=== PATIENT | female | born 1980 | race Caucasian/White ===

== ENCOUNTER 2021-07-04 00:03 | Day surgery (SDC) | payer OTHER, SELFPAY ==
[2021-06-24 15:24] VITALS: BMI 23.8
[2021-07-04 08:34] VITALS: BP 135/84; PULSE 89; RESP 18; TEMP 36.8; O2SAT 99
[2021-07-04] MEDS: LACTATED RINGERS 1,000 ML 150 ML IV CONT (08:51)
--- NOTE | 2021-07-04 08:59 | P.PNAN_ITS ---
Anes - Initial Pre Proc Eval Procedure: Operation Date: 07/04/21 09:30 Proposed Procedures p Esophagogastroduodenoscopy & Colonoscopy - Roberto Morales MD Date/Time: 07/04/21 08:59 Surgeon: Roberto Morales MD Pre Op Diagnosis: blood in stool, GERD Patient Data Age: 41 Gender: F Height: 1.57 m Weight: 58.7 kg Last Vital Signs Temp 98.2 F 07/04/21 08:34 Pulse 89 07/04/21 08:34 Resp 18 07/04/21 08:34 BP 135/84 07/04/21 08:34 Pulse Ox 99 07/04/21 08:34 Allergies Allergy/AdvReac Type Severity Reaction Status Date / Time No Known Allergies Allergy Verified 07/04/21 08:33 Home Medications Medication Instructions Recorded Confirmed Type norgestimate-ethinyl estradiol 1 tablet PO DAILY 06/24/21 06/24/21 History [Estarylla] omeprazole 40 mg PO DAILY 06/24/21 06/24/21 History Patient hx anesthesia problems: none Family hx anesthesia problems: none Results Review: All pre-operative results and documents have been reviewed as part of the pre-operative evaluation. PMFSH Social History Social History Smoking status: Never smoker Tobacco type: cigarettes Alcohol intake: current Drinks per week: 2 Living arrangements: alone Spiritual care concerns: No Anes - Eval Final PreProcedure Day of Procedure 07/04/21 08:59 Patient weight: normal Heart: regular rate and rhythm Lungs: clear to auscultation Airway: Mallampati scale class II Neurological: alert and oriented Last oral intake: >/= 8 hours ASA classification: II Emergent: no Anesthetic plan: proceed Anesthesia type and monitoring: general GIVS and standard monitoring Results Review: All pre-operative results and documents have been reviewed as part of the pre-operative evaluation. Informed Consent: The patient's anesthetic plan and its attendant risks and benefits were discussed with the patient/family/POA. Questions were solicited an d answers provided to the satisfaction of the patient/family/POA.
--- NOTE | 2021-07-04 09:14 | WPDGICN ---
Assessment and Plan Assessment and plan (1) GERD (gastroesophageal reflux disease): Code(s): K21.9 - Gastro-esophageal reflux disease without esophagitis Status: Acute Assessment and Plan: Patient has a history of esophageal stricture dilated. His felt this was on the basis of acid reflux. Patient recently has resumed omeprazole. Plan is for EGD to assess more thoroughly as she recently has had substernal chest discomfort. Further recommendations will be given after endoscopy. (2) Rectal bleeding: Code(s): K62.5 - Hemorrhage of anus and rectum Status: Acute Assessment and Plan: Patient has noticed rectal bleeding. On several occasions this is filled toilet bowl. Plan is for colonoscopy to assess more thoroughly. She is known to have hemorrhoids from previous colonoscopy. High-fiber diet advised further recommendations will be given pending exam. GI Consult Note Consult date/time: 07/04/21 09:14 HPI: Irais Cho is a 41 year old female Presents for colonoscopy an EGD. Patient has history of GE reflux esophageal stricture ring. This most recently was dilated 2015. She initially was treated with PPI therapy but discontinued this. Over recent months has noticed substernal pressure and some hesitancy on swallowing foods. She is referred back for follow-up EGD. She is recently resumed omeprazole 20mg p.o. daily over the last several months. She denies any overt heartburn. She has had no weight loss. Additionally patient has noticed bright red blood per rectum typically on several occasions this has turned the toilet bowl red. She denies any abdominal or rectal pain. Previous colonoscopy 10 years ago revealed internal hemorrhoids. She has had no other specific therapy. She presents today for both colonoscopy an EGD. Review of Systems Review of Systems: All systems reviewed & are unremarkable except as noted in HPI and below PMFSH Social History Social History Smoking status: Never smoker Tobacco type: cigarettes Alcohol intake: current Drinks per week: 2 Living arrangements: alone Spiritual care concerns: No Meds Home Medications and Allergies Home Medications Medication Instructions Recorded Confirmed Type norgestimate-ethinyl estradiol 1 tablet PO DAILY 06/24/21 06/24/21 History [Estarylla] omeprazole 40 mg PO DAILY 06/24/21 06/24/21 History Allergies Allergy/AdvReac Type Severity Reaction Status Date / Time No Known Allergies Allergy Verified 07/04/21 08:33 Vital Signs Vital Signs - 24 hr 07/04/21 08:34 Temperature 98.2 F Pulse Rate 89 Respiratory Rate 18 Blood Pressure 135/84 Pulse Oximetry 99 Exam Narrative: Physical exam reveals patient to be alert. Vital signs stable. HEENT exam is unremarkable. Patient is anicteric. Lungs are clear to auscultation and percussion. Heart is without murmur or extra sounds. Abdominal exam bowel sounds are present soft nontender with no organomegaly. Digital external rectal exam is normal.
[2021-07-04] MEDS: BENZOCAINE (*SP) 60 ML SPRAY CAN (HURRICAINE) 1 SPRAY MUCOUS MEM (09:21)
--- NOTE | 2021-07-04 09:36 | SUR.OPER ---
EGD ended at 930. Colonoscopy started at 936.
[2021-07-04 09:54] VITALS: BP 104/68; PULSE 74; RESP 18; O2SAT 100
[2021-07-04 10:04] VITALS: BP 109/70; PULSE 63; RESP 18; O2SAT 100
[2021-07-04 10:14] VITALS: BP 118/65; PULSE 63; RESP 18; O2SAT 100
== END 2021-07-04 10:23 | disposition home or self-care (01) ==
PROVIDERS: PCP Physician Assistant; Visit Provider Internal Medicine Gastroenterology
PROC: 0DJ08ZZ Inspection of Upper Intestinal Tract, Via Natural or Artificial Opening Endoscopic (ICD-10-PCS; CPT 43235; principal; 2021-07-04 09:30)
DX: K21.9 Gastro-esophageal reflux disease without esophagitis (principal); Q39.4 Esophageal web; K62.5 Hemorrhage of anus and rectum; K64.8 Other hemorrhoids
CPT/HCPCS: 43235; 43450; 45378; J2704; J7120

== ENCOUNTER → 2022-03-13 15:12 | Outpatient (CLI) | payer OTHER, SELFPAY ==
--- NOTE | ~2022-03-13 | CT_ITS ---
CT Abdomen and Pelvis with contrast. History: Periumbilical pain. Spiral CT of the abdomen and pelvis was performed after the administration of intravenous contrast. 1 00 cc of Omnipaque 350 was administered intravenously without complication. Dose reduction technique was used on this scan by utilizing automated exposure control and iterative reconstruction technique. The dose-length product (DLP) was 311.43 mGy-cm. Findings: Scans through the lung bases demonstrate mild atelectatic change. 1.6 cm hypodense lesion present at the superior liver (axial image 20). The spleen, pancreas, gallbla dder, adrenals and kidneys are within normal limits. No evidence of aortic aneurysm. No lymphadenop athy is seen. There is no evidence of bowel obstruction. There is no evidence to suggest acute appendicitis or dive rticulitis. Images through the pelvis were performed. Urinary bladder unremarkable. Small uterine fibroids are pr esent, most notably exophytic at the right frontal region. Trace pelvic free fluid noted. No other ad nexal mass seen. Impression: Uterine fibroids. 1.6 cm hypodense hepatic lesion. This is likely a small cyst or hemangioma. Consider follow-up pre an d postcontrast MR to better confirm. Reviewed, dictated and finalized at location . 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 1.6 cm hypodense hepatic lesion. This is likely a small cyst or hemangioma. Con grades 7 8 tutor follow-up pre and postcontrast MR to better confirm.
== END ==
PROVIDERS: PCP Physician Assistant; Visit Provider Physician Assistant
DX: R10.33 Periumbilical pain (principal); D25.9 Leiomyoma of uterus, unspecified
CPT/HCPCS: 74177; Q9967

== ENCOUNTER → 2022-04-05 09:34 | Outpatient (CLI) | payer OTHER, SELFPAY ==
--- NOTE | ~2022-04-05 | MR_ITS ---
EXAMINATION: MR abdomen wo/w con INDICATION: Indeterminate liver lesion on CT TECHNIQUE: Coronal SSFSE ARC, WATER:coronal LAVA-FLEX, Coronal 2D FIESTA FatSat, Axial SSFSE BH ARC, Axial 3D DualEcho BH, Axial SSFSE-IR, Axial DWI b=500, Axial 2D FIESTA FatSat, pre and dynamic postco ntrast Axial LAVA ARC, postcontrast Coronal In and Opposed phase LAVA FLEX COMPARISON: 03/13/2022 CONTRAST: Multihance, 12 cc FINDINGS: There is a 12 mm T1 hypointense, T2 hyperintense lesion in liver segment VII which demonstr ates interrupted peripheral nodular enhancement with gradual central filling on progressively delayed postcontrast images, consistent with a hemangioma. A 7 mm lesion located more laterally in liver seg ment VII with similar signal characteristics is also consistent with a hemangioma. There is a 6 mm ar terially enhancing lesion in liver segment eight which is isointense to liver on the remaining postco ntrast sequences, consistent with a benign finding such as focal nodular hyperplasia, flash filling h emangioma, or adenoma. Differential is the same for additional smaller lesions measuring up to 4 mm i n liver segment III and segment V. No suspicious liver lesion is identified. A pectus excavatum defor mity is noted. The spleen, pancreas, gallbladder, and adrenal glands are normal. There is a 9 mm cyst of the left kidney. The right kidney is unremarkable. There are no pathologically enlarged abdominal lymph nodes. No dilated loops of bowel are seen. IMPRESSION: 1. Liver lesions as described above with benign signal characteristics including a hemangioma corresp onding to the lesion identified on the recent comparison CT. Reviewed, dictated and finalized at location B. R RESOURCES PROGRAM DIRECTOR IMPRESSION: 1. Liver lesions as described above with benign signal characteristics includin g a hemangioma corresponding to the lesion identified on the recent comparison CT.
== END ==
PROVIDERS: PCP Physician Assistant; Visit Provider Physician Assistant
DX: K76.9 Liver disease, unspecified (principal)
CPT/HCPCS: 74183; A9577

== ENCOUNTER 2024-02-02 14:08 | Emergency (ER) | payer OTHER, SELFPAY ==
[2024-02-02 14:15] VITALS: BP 115/84; PULSE 63; RESP 16; TEMP 36.8; O2SAT 100
--- NOTE | 2024-02-02 14:33 | ED_ITS ---
HPI - URI/Sore Throat General Chief Complaint: Upper Respiratory Infection Stated Complaint: SOB/Chest Congestion Time Seen by Provider: 02/02/24 14:33 Source: patient, RN notes reviewed and old records reviewed Mode of arrival: ambulatory Limitations: no limitations History of Present Illness HPI Narrative: 43 year old female who presents to express care with complaints of 10 day history of fatigue, nasal congestion and drainage sinus pressure and some cough. Patient reports that she was seen on the at another urgent care and was diagnosed with bronchitis and received steroid inhaler and cough medication bur has not helped with the sinus congestion, drainage or the sinus pressure. Patient reports that she needs to get well is scheduled for surgery later this month. MD elicited complaint: cough, rhinorrhea, nasal congestion, sinus pain and other (fatigue) Onset (ago): day(s) (10 days since initial symptoms ) Severity: moderate Able to tolerate fluids by mouth: Yes Treatments prior to arrival: other (steroids,inhaler and prescribed cough medication) Related Data Home Medications Medication Instructions Recorded Confirmed norgestimate 0.25 mg-ethinyl 1 tablet PO DAILY 06/24/21 02/02/24 estradiol 35 mcg tablet (Estarylla) omeprazole 40 mg capsule,delayed 40 mg PO DAILY 06/24/21 02/02/24 release albuterol sulfate 90 mcg/actuation 2 inh inhalation DIRECTED 02/02/24 02/02/24 aerosol inhaler promethazine-DM 6.25 mg-15 mg/5 mL 5 ml PO DIRECTED 02/02/24 02/02/24 oral syrup Allergies Allergy/AdvReac Type Severity Reaction Status Date / Time No Known Allergies Allergy Verified 02/02/24 14:23 Review of Systems Review of Systems: CONSTITUTIONAL: Reports malaise, no present chills, sweats, or fever. EYES: Denies visual changes, redness, or discharge. ENT: Reports rhinorrhea, congestion, sinus pain, no otalgia and no sore throat. CARDIOVASCULAR: Denies chest pain, palpitations, or edema. RESPIRATORY: Reports cough.? Denies dyspnea. GASTROINTESTINAL: Denies abdominal pain, nausea, vomiting, diarrhea SKIN: Denies rash or itching. MUSCULOSKELETAL: Denies myalgia. NEUROLOGIC: frontal headache. All systems reviewed & are unremarkable except as noted in HPI and below [facility] Past Medical History Medical History (Updated 02/03/24 @ 12:34 by No Raymundo NP) Esophageal dilatation GERD (gastroesophageal reflux disease) Social History Social History (Updated 02/03/24 @ 12:34 by No Raymundo NP) Smoking status: Never smoker Tobacco type: cigarettes Alcohol intake: current Drinks per week: 2 Substance use type: does not use Living arrangements: alone Gender identity (if verbalized by the patient): Female Spiritual care concerns: No Comments At time of signature, agree with nursing past medical, surgical, social and family history. There is no relevant family history pertinent to the presenting complaint Exam Narrative: GENERAL: Well-appearing, well-nourished, and in no acute distress. HEAD: Normocephalic EYES: PERRLA, conjunctivae clear ENT: Nares clear, turbinates edematous and erythematous, clear to light yellow discharge, sinus pressure frontal headache. Mucous membranes moist. TM pearly castillo with dull light reflex bilaterally; no tragal tenderness. Oropharynx erythematous without lesions. Tonsils not enlarged and without exudate, no drooling, no hoarseness, no trismus, uvula midline.post nasal drainage NECK: Supple. No lymphadenopathy CHEST: Clear to auscultation, breath sounds equal. No wheezing, rhonchi, rales, or stridor. No respiratory distress, speaks in full sentences.occasional cough noted SAO2 100% on room air HEART: Regular rate and rhythm. No murmur heard. SKIN: Warm, dry, no rash. NEURO: Alert and oriented x3. PSYCH: Normal mood and affect Course Course Emergency Course: Patient is aware of diagnosis, understands and agrees to treatment plan.? Anticipatory guidance given.? Patient agrees to follow-up as directed and is aware of reasons to seek care at the emergency department. Portions of this record may have been created with voice recognition software Level of Care: Express Care Visit Vital Signs Vital signs: Vital Signs Temperature 36.8 C 02/02/24 14:15 Pulse Rate 63 02/02/24 14:15 Respiratory Rate 16 02/02/24 14:15 Blood Pressure 115/84 02/02/24 14:15 Pulse Oximetry 100 02/02/24 14:15 Temperature 36.8 C 02/02/24 14:15 Pulse Rate 63 02/02/24 14:15 Respiratory Rate 16 02/02/24 14:15 Blood Pressure 115/84 02/02/24 14:15 Pulse Oximetry 100 02/02/24 14:15 Oxygen Delivery Room Air 02/02/24 14:25 Reviewed MDM - URI/Sore Throat MDM Narrative Medical decision making narrative: Differential diagnosis considered: Lawson virus, strep pharyngitis, allergic r hinitis, upper respiratory tract infection, sinusitis, rhinosinusitis, nasopharyngitis. viral pharyngitis, otitis media, otitis externa, pneumonia, bronchitis, viral cough syndrome, viral syndrome, and influenza.? Exam findings show no acute concerns or changes; patient is non-toxic appearing and is in no distress.? Patient is appropriate for outpatient treatment and follow-up. Differential Diagnosis Differential diagnosis: Likely upper respiratory infection, sinusitis, viral infection and other (cough, ) Medical Records Attestation: I reviewed the patient's medical records. Lab Data Attestation: I reviewed the patient's lab results. Critical Care Time Critical Care Time Critical Care Time: No Discharge Plan Discharge Clinical Impression: Sinusitis Qualifiers: Sinusitis location: pansinusitis Chronicity: acute Recurrence: non-recurrent Qualified Code(s): J01.40 - Acute pansinusitis, unspecified Patient Disposition: Home, Self-Care Condition: Stable Instructions: Antibiotic Form, Rhinosinusitis (ED) Additional Instructions: Increase fluids especially juices and water [id number]-[id number]-[id number] cough and cold medicine of your choice for your symptoms Continue your inhaler/nebulizer as directed Zyrtec, Claritin or Meseret daily may use plain Sudafed for decongestant heat to the face 20-30 minutes 4-6 times a day for pain Salt water gargles, throat lozenges or throat sprays as desired Antibiotic as directed--finished the medication Flonase daily use nasal saline first gently blow nose and then us Flonase. may use saline as needed. If your symptoms persist, change or worsen significantly before you can contact your personal physician then please, without delay, go to the emergency department for further evaluation. Follow-up with PCP in 7-10 days or sooner if needed Prescriptions: New azithromycin 250 mg tablet See Rx Instructions .ROUTE .COMPLEX Qty: 6 0RF Rx Instructions: For 250 mg dose pack: take 500 mg today (day 1), then 250 mg for 4 days (days 2-5) No Action promethazine-DM 6.25-15 mg/5 mL syrup 5 ml PO DIRECTED albuterol sulfate 90 mcg/actuation HFA aerosol inhaler 2 inh INHALATION DIRECTED norgestimate-ethinyl estradiol [Estarylla] 0.25-35 mg-mcg tablet 1 tablet PO DAILY omeprazole 40 mg capsule,delayed release(DR/EC) 40 mg PO DAILY Follow-up/Referrals: [place],ELIF Arevalo [Primary Care Provider] - Time of Disposition: 14:38 Quality [place] Coma Scale Eyes: Open Verbal: Oriented and Alert Motor: Follows Commands [place] Coma Total Score: 15
== END 2024-02-02 14:41 | disposition home or self-care (01) ==
PROVIDERS: Emergency Provider Registered Nurse; PCP Physician Assistant
DX: J01.40 Acute pansinusitis, unspecified (principal); K21.9 Gastro-esophageal reflux disease without esophagitis
CPT/HCPCS: 99213; G0463

== ENCOUNTER 2024-04-21 17:53 | Emergency (ER) | payer OTHER, SELFPAY ==
[2024-04-21 18:10] VITALS: BP 115/70; PULSE 83; RESP 16; TEMP 36.8; O2SAT 100
[2024-04-21 18:51] LABS: EDCOVIDSCREEN Negative (Negative); EDINFLUASCREEN Positive (Negative); EDINFLUBSCREEN Negative (Negative)
--- NOTE | 2024-04-21 18:55 | ED.URI ---
HPI - URI/Sore Throat General Chief Complaint: Upper Respiratory Infection Stated Complaint: Fatigue/Drainage/Fever/Chills Source: patient and RN notes reviewed Mode of arrival: ambulatory Limitations: no limitations History of Present Illness HPI Narrative: 44-year-old female presented for complaint of sore throat body aches, sinus drainage, ear pressure, cough, fever/chills. Onset yesterday. Denies sob, wheezing, n/v/d. MD elicited complaint: cough Related Data Home Medications ?Medication ?Instructions ?Recorded ?Confirmed ?Last Taken ?Type omeprazole 40 mg capsule,delayed 40 mg PO DAILY 06/24/21 04/21/24 07/03/21 History release Allergies Allergy/AdvReac Type Severity Reaction Status Date / Time No Known Allergies Allergy Verified 04/21/24 18:32 Review of Systems Review of Systems: CONSTITUTIONAL: Endorses malaise, myalgia, chills, sweats, fever EYES: Denies visual changes, redness, or discharge ENT: Reports rhinorrhea, sore throat CARDIOVASCULAR: Denies chest pain, palpitations, edema RESPIRATORY: Reports cough, post nasal drainage. Denies dyspnea GASTROINTESTINAL: Denies abdominal pain, nausea, vomiting, diarrhea NEUROLOGIC: Denies headache PMFSH Past Medical History Medical History Esophageal dilatation GERD (gastroesophageal reflux disease) Social History Social History Smoking status: Never smoker Tobacco type: cigarettes Alcohol intake: current Drinks per week: 2 Substance use type: does not use Living arrangements: alone Gender identity (if verbalized by the patient): Female Spiritual care concerns: No Exam Narrative: GENERAL: mildly Ill-appearing, nontoxic no acute distress. EYES: PERRLA, conjunctivae clear ENT: Mucous membranes moist. TM pearly castillo with dull light reflex bilaterally; no tragal tenderness. Oropharynx erythematous without lesions or exudate, no drooling, no hoarseness, no trismus, uvula midline. No tripod positioning, muffled voice, soft palate or pharyngeal wall bulging NECK: Supple. No lymphadenopathy CHEST: Clear to auscultation, breath sounds equal. No wheezing, rhonchi, rales, or stridor. No respiratory distress, speaks in full sentences. HEART: Regular rate and rhythm. No murmur heard. SKIN: Warm, dry, no rash. NEURO: Alert and oriented x3. PSYCH: Normal mood and affect Course Course Emergency Course: Patient is aware of diagnosis, understands and agrees to treatment plan. Anticipatory guidance given. Patient agrees to follow-up as directed and is aware of reasons to seek care at the emergency department. Portions of this record may have been created with voice recognition software Level of Care: Express Care Visit Vital Signs Vital signs: Vital Signs Temperature 98.2 F 04/21/24 18:10 Pulse Rate 83 04/21/24 18:10 Respiratory Rate 16 04/21/24 18:10 Blood Pressure 115/70 04/21/24 18:10 Pulse Oximetry 100 04/21/24 18:10 Oxygen Delivery Room Air 04/21/24 18:10 Temperature 98.2 F 04/21/24 18:10 Pulse Rate 83 04/21/24 18:10 Respiratory Rate 16 04/21/24 18:10 Blood Pressure 115/70 04/21/24 18:10 Pulse Oximetry 100 04/21/24 18:10 Oxygen Delivery Room Air 04/21/24 18:10 reviewed MDM - URI/Sore Throat MDM Narrative Medical decision making narrative: POS flu. Discussed physical exam findings. Discussed risks and benefits of Tamiflu, requesting prescription. Advised supportive measures and signs/symptoms to go to the ER. Pt is appropriate for outpt treatment and f/u. Differential Diagnosis Differential diagnosis: Likely upper respiratory infection, sinusitis and viral infection Lab Data Labs: Lab Results 04/21/24 Range/Units 18:49 POC Influenza A Ag Positive (Negative) POC Influenza B Ag Negative (Negative) POC SARS CoV-2 Ag Negative (Negative) Discharge Plan Discharge Clinical Impression: Influenza Patient Disposition: Home, Self-Care Condition: Stable Instructions: Antibiotic Form, Influenza (ED) Additional Instructions: Influenza positive You should avoid crowds until you are fever free for 24 hours without the use of fever reducing medications, or the symptoms are improved Rest. Drink plenty of fluids. Tylenol 1000mg every 8 hours as needed for pain/fever Recommend Flonase spray and Zyrtec (or Claritin/Meseret) for sinus pressure/congestion over the counter Cough syrup may cause drowsiness; avoid driving or take it at night time. Follow up with your primary care provider as needed Go to the ER for worsening symptoms or concerns Patient Language: Malay Prescriptions: New oseltamivir [Tamiflu] 6 mg/mL suspension for reconstitution 75 mg PO BID 5 Days Qty: 125 0RF No Action omeprazole 40 mg capsule,delayed release(DR/EC) 40 mg PO DAILY Follow-up/Referrals: PHYSICIAN,RESIDENTIAL SALES REPRESENTATIVE [Primary Care Provider] - Stand Alone Forms: Work/School Release IP
== END 2024-04-21 19:07 | disposition home or self-care (01) ==
PROVIDERS: Emergency Provider Nurse Practitioner Family
DX: J10.1 Influenza due to other identified influenza virus with other respiratory manifestations (principal); Z20.822 Contact with and (suspected) exposure to COVID-19; K21.9 Gastro-esophageal reflux disease without esophagitis
CPT/HCPCS: 87426; 87804; 99213; G0463

== ENCOUNTER 2024-06-20 08:00 | Emergency (ER) | payer OTHER, SELFPAY ==
--- NOTE | 2024-06-20 08:15 | ED_ITS ---
HPI - URI/Sore Throat General Chief Complaint: Upper Respiratory Infection Stated Complaint: COUGH/LOSING VOICE/CHEST Time Seen by Provider: 06/20/24 08:15 Source: patient Mode of arrival: ambulatory Limitations: no limitations History of Present Illness HPI Narrative: 44-year-old female presents complaint of cough, congestion, fatigue for 2 days. Woke up today with hoarse voice. Patient reports that she wants a [employer] to start over the weekend so that she feels better for work next week. No chest pain or shortness breath. Denies nausea vomiting diarrhea. Afebrile. All systems reviewed and negative except as noted above. Related Data Home Medications ?Medication ?Instructions ?Recorded ?Confirmed ?Last Taken ?Type omeprazole 40 mg capsule,delayed 40 mg PO DAILY 06/24/21 06/20/24 07/03/21 History release Allergies Allergy/AdvReac Type Severity Reaction Status Date / Time No Known Allergies Allergy Verified 06/20/24 08:12 Review of Systems Review of Systems: CONSTITUTIONAL: Denies fever, chills, or sweats. Reports fatigue. EYES: Denies visual changes, redness, or discharge. ENT: Reports rhinorrhea, congestion. Denies sore throat, or otalgia. CARDIOVASCULAR: Denies chest pain, palpitations, or edema. RESPIRATORY: Reports cough. Denies dyspnea. GASTROINTESTINAL: Denies abdominal pain, nausea, vomiting, or diarrhea. GENITOURINARY: Denies dysuria or hematuria. SKIN: Denies rash or itching. MUSCULOSKELETAL: Denies back pain, joint pain, or myalgia. NEUROLOGIC: Denies headache, numbness, or weakness. PSYCHIATRIC: Denies anxiety or depression. All other systems reviewed are negative, except as documented in HPI. [facility] Past Medical History Medical History Esophageal dilatation GERD (gastroesophageal reflux disease) Social History Social History Smoking status: Never smoker Tobacco type: cigarettes Alcohol intake: current Drinks per week: 2 Substance use type: does not use Living arrangements: alone Gender identity (if verbalized by the patient): Female Spiritual care concerns: No Comments At time of signature, agree with nursing past medical, surgical, social and family history. There is no relevant family history pertinent to the presenting complaint. Exam Narrative: GENERAL: This is a well-nourished, well-developed patient, in no apparent distress. HEAD: normocephalic, atraumatic. EYES: PERRL. Sclera clear/white. Vision is grossly intact. EARS: External ears normal, auditory canals clear and without drainage, TMs normal without perforation. Hearing grossly intact. NOSE: External nose normal with no obvious nasal discharge, nares without redness, no rhinorrhea. THROAT: Mucous membranes moist, posterior pharynx clear. Hoarse voice noted NECK: Neck supple, non-tender without lymphadenopathy, masses or thyromegaly. CARDIOVASCULAR: Regular rate and rhythm without murmurs, gallops, or rubs. RESPIRATORY: Clear to auscultation. Breath sounds equal bilaterally. No wheezes, rales, or rhonchi. SKIN: warm, Dry, intact with no suspicious lesions or rash, good texture and turgor. NEURO: awake, alert, and oriented to person, place and time. There were no obvious focal neurologic abnormalities. EXTREMITIES: No joint tenderness, effusion, or edema noted. Course Course Level of Care: Express Care Visit Vital Signs Vital signs: Vital Signs Temperature 36.8 C 06/20/24 08:22 Pulse Rate 64 06/20/24 08:22 Respiratory Rate 18 06/20/24 08:22 Blood Pressure 116/63 06/20/24 08:22 Pulse Oximetry 99 06/20/24 08:22 Temperature 36.8 C 06/20/24 08:22 Pulse Rate 64 06/20/24 08:22 Respiratory Rate 18 06/20/24 08:22 Blood Pressure 116/63 06/20/24 08:22 Pulse Oximetry 99 06/20/24 08:22 Reviewed MDM - URI/Sore Throat MDM Narrative Medical decision making narrative: Patient is well-appearing, nontoxic. Lungs clear to auscultation. Her symptoms are viral. Patient is requesting azithromycin. States this is the only thing that makes her feel better when she is sick. Educated regarding antibiotics. Please be advised this is a medical document. It is intended for ipjj-fa-rnew communication. It is written in medical language and may contain unfamiliar abbreviations or verbiage. Medical documents are intended to carry relevant information, facts as evident, and the clinical opinion of the practitioner at the time of the encounter. This report may have been done utilizing a voice recognition system. Attempts have been made to correct errors. However, there may be uncorrected grammatical, spelling, and recognition errors present. The file time of this note does not necessarily represent the time of service. Differential Diagnosis Differential diagnosis: Likely upper respiratory infection, sinusitis and viral infection Discharge Plan Discharge Clinical Impression: Viral upper respiratory tract infection with cough Patient Disposition: Home, Self-Care Condition: Stable Instructions: Antibiotic Form, Upper Respiratory Infection (ED) Additional Instructions: Your symptoms are viral and may last 10 to 14 days. Continue taking over the counter medications to treat your symptoms. Drink at least 64 ounces of water a day. Place cool mist humidifier in bedroom where you sleep. I prescribed an antibiotic today. I recommend holding this medication and start it if symptoms not improving in the next 10 days. See your doctor as needed. Patient Language: Montenegrin Prescriptions: New azithromycin 250 mg tablet See Rx Instructions .ROUTE .COMPLEX Qty: 6 0RF Rx Instructions: For 250 mg dose pack: take 500 mg today (day 1), then 250 mg for 4 days (days 2-5) No Action omeprazole 40 mg capsule,delayed release(DR/EC) 40 mg PO DAILY Follow-up/Referrals: UNKNOWN,DOCTOR [Primary Care Provider] - Time of Disposition: 08:24
[2024-06-20 08:22] VITALS: BP 116/63; PULSE 64; RESP 18; TEMP 36.8; O2SAT 99
== END 2024-06-20 08:28 | disposition home or self-care (01) ==
PROVIDERS: Emergency Provider Nurse Practitioner Family
DX: J06.9 Acute upper respiratory infection, unspecified (principal); R05.9 Cough, unspecified; K21.9 Gastro-esophageal reflux disease without esophagitis
CPT/HCPCS: 99213; G0463

== ENCOUNTER 2024-10-14 08:35 | Outpatient (CLI) | payer OTHER, SELFPAY ==
--- NOTE | ~2024-10-14 | XR_ITS ---
EXAM/PROCEDURE: XR abdomen/kub 1V - 10/14/2024 8:37 CDT HISTORY: 44 years old Female with constipation x 1 week COMPARISON: None available. TECHNIQUE: AP view(s) of the abdomen. FINDINGS: The bowel gas pattern is normal. There is no evidence for obstruction. Mild stool burden. No free intraperitoneal air is identified on this supine radiograph. The visualized soft tissue shadows are unremarkable. No gross bony abnormalities are seen. Visualized portions of lung bases are clear. IMPRESSION: Mild stool burden. Reviewed, dictated and finalized at location A. IMPRESSION: Mild stool burden.
--- OUTSIDE RECORDS SUMMARY | 2024-10-14 08:40 | XMS_ITS | Continuity of Care Document ---
Author Organization [facility] Address [address] [place] [address] Phone Care Team Providers Care Pit Boss Name Role Phone Tarik Maharaj MD Unavailable Unavailabl e Medications Medication Instructions Dosage Effective Dates (start - stop) Status Comments MiraLax 17Gm,1cap GRANULES Take once daily - Active zolpidem 5 mg Tab Take as needed - Active clonazepam 0.5 mg Tab 1/2 tab BID - Active lamotrigine 25 mg Chew Tab Dispersible 1 twice daily - Active Ex-Lax Ultra 5 mg Tab Take as needed - Act joan MOTRIN 600 MGTABLET Take as needed - Activ e ALBUTEROL 90 MCGAEROSOL take as needed - A ctive Procedures Procedure Date Offic Cons New/estab Mod Advance Directives Directive Yes / No Effective Date File Name No Information Encounters Encounter Description Practice Location Reason(s) For Visit Diagnoses Date Provider Providers Copied on Encounter Offic Cons New/estab Mod [facility], [address] [place] [address], [place], [place], [id number] tel:[phone] [facility] AsthmaScreeni ng, depressionCon stipationAbno rmal loss of weightRectal pain 0 7-200 9 Nicko Crocker er[address] [place] [address], [place], [place], [id number] , [place]. tel:[phone] Referring Provider: Alcon Otto MD, [address] [place] [address], [id number]. tel:[phone] Family History Family Member Type Diagnosis Age At Onset No Information Payers Payer name Insurance type Covered green party ID Authoriza tion(s) [facility] [id number] Social History Type Description Quantity Date Captured Comments Sex Female Smoking Status No Information Chief Complaint And Reason For Visit No Information Reason For Referral Reason For Referral No Information History Of Present Illness Encounter Date Complaint History Of Prese nt Illness No Information Functional Status Date Functional Assessmen t No Information Instructions Date Instruction Additional Infor mation No Information Assessments Type Assessment Date No Information Patient Care Teams Name Effective Dates (start - stop) Status Members No Information
--- OUTSIDE RECORDS SUMMARY | 2024-10-14 08:40 | XMS_ITS | Clinical Summary ---
Author Organization [email or web address] Address [address] [place] [address] Care Team Providers Care Patient Service Representative Name Role Phone Obed Lemos MD Primary Care Provider Source Comments [email or web address],non-owned Affiliates and Associated Physician Practices is amultiple site organization consisting of ambulatory clinics and hospital sitesin [place], [place], [place] and [place]. This disclosure is being madepursuant to the Care Everywhere program and may not contain all information available regarding this patient. Last updated 17.[email or web address] Allergies No known active allergies Medications * Be aware that medications may not be up to date on this document. Alwaysverify current medications with the patient. omeprazole (PRILOSEC) 10 MG capsule 10 mg 03/23/2014 Active Other BCP Active Pseudoephedrine-D M-GG (ROBITUSSIN COUGH/COLD D PO) Act joan Pseudoeph-Doxylam ine-DM-APAP (NYQUIL PO) Active Active Problems No known active problems Family History Relation Name Status Comments Father Alive Mother Alive Social History Tobacco Use Types Packs/Day Years Used Date Smoking Tobacco: Never Smokeless Tobacco: Never Alcohol Use Standard Drinks/Week Comments Yes 0 (1 standard drink = 0.6 oz pur e alcohol) Weekly Comments No Sex and Gender Information Value Date Recorded Sex Assigned at Not on file Legal Sex Female 2:54 PM RESEARCH NURSE PRACTITIONER Gender Identity Not on file Sexual Orientation Not on file Last Filed Vital Signs Vital Sign Reading Time Taken Comments Blood Pressure 110/70 03/11/2018 3:47 PM RESEARCH NURSE PRACTITIONER Pulse 76 03/11/2018 3:47 PM RESEARCH NURSE PRACTITIONER Temperature 36.9 C (98.5 F) 03/11/2018 3:47 PM RESEARCH NURSE PRACTITIONER Respiratory Rate 16 03/11/2018 3:47 PM RESEARCH NURSE PRACTITIONER Oxygen Saturation 99% 03/11/2018 3:47 PM RESEARCH NURSE PRACTITIONER Inhaled Oxygen Concentration - - Weight 56.7 kg (125 lb) 03/11/2018 3:47 PM RESEARCH NURSE PRACTITIONER Height 157.5 cm (5' 2) 03/11/2018 3:47 PM RESEARCH NURSE PRACTITIONER Body Mass Index 22.86 03/11/2018 3:47 PM RESEARCH NURSE PRACTITIONER Plan of Treatment Health Maintenance Due Date Last Done Comments LIPID TESTING 1982 MAMMOGRAM 1982 HIV SCREENING 1997 HEPATITIS C SCREENING 03/28/2000 DTAP/TDAP/TD VACCINES (1 - Tdap) 2001 HEPATITIS B VACCINE (1 of 3 - 19+ 3-dose series) 2001 PAP SMEAR 2003 HPV VACCINE (1 - 3-dose SCDM series) 2009 COVID-19 VACCINE ( - 2023-2 5 season) 2023 DEPRESSION SCREENING 03/26/2024 INFLUENZA VACCINE (#1) 2024 ZOSTER VACCINE (1 of 2) 2032 HIB VACCINE Aged Out No longer eligi ble based on patient's age to complete this topic MENINGOCOCCAL (Group B) VACC INE SHARED DECISION-MAKING Aged Out No longer eligibl e based on patient's age to complete this topic MENINGOCOCCAL GROUPS A/C/Y/W VACCINE Aged Out No longer eligible b ased on patient's age to complete this topic PNEUMOCOCCAL VACCINE Aged Out No long er eligible based on patient's age to complete this topic Insurance [facility] Care Teams Patient Service Representative Relationship Specialty Start Date End Date Obed Lemos MD [address] [place] [phone] PCP - General Family Medicine 03/11/18
--- OUTSIDE RECORDS SUMMARY | 2024-10-14 08:40 | XMS_ITS | Clinical Summary ---
Author Organization [facility] Address [address] [place] [address] Care Team Providers Care Consultant Education Name Role Phone Irina Slade Primary Care Pr ovider Ivis Puckett DO Unavailable [phone] Allergies No known active allergies Medications omeprazole (PriLOSEC) 10 mg capsule Take 1 capsule (10 mg total) by mouth daily Active cetirizine (ZyrTEC) 10 mg tablet Take 1 tablet (10 mg total) by mouth daily Active docusate sodium (COLACE) 100 mg capsuleIndicati ons:constipatio n Take 1 capsule (100 mg total) by mouth 2 (two) times a day with a glass of water 60 capsule 02/18/2024 Active Active Problems Problem Noted Date Diagnosed Date Fibroid 01/23/2024 Left ovarian cyst 01/23/2024 Umbilical discharge 03/15/2022 Lesion of liver 03/15/2022 Umbilical pain 03/07/2022 Cellulitis of umbilicus 03/03/2022 Upper respiratory infection 08/10/2021 Acute sinusitis 06/30/2021 Tremor 05/31/2021 Onychomycosis of toenail 05/31/2021 Occult blood in stools 05/31/2021 Essential tremor 05/31/2021 Dizziness 05/31/2021 Gastroesophageal reflux disease without esophagi tis 05/30/2021 Umbilical Abscess 10/07/2019 Encounter for postoperative care 05/16/2016 Menorrhagia 03/16/2016 Male infertility, unspecified 03/16/2016 Anovulation 02/28/2016 Endometriosis 10/26/2015 Anemia 10/26/2015 Abnormal radiographic examination 10/22/2015 Leiomyoma of uterus, unspecified 10/22/2015 Dysmenorrhea 09/18/2015 Immunizations Immunization Administration Dates Next Due Influenza, Trivalent, IM (MDV) 12/30/2013,2012 Influenza, Trivalent, Preservative Free, Intramu scular 12/28/2014 Tdap 04/21/2018 Surgical History Surgery Date Site/Laterality Comments CERVICAL BIOPSY W/ LOOP ELECTRODE EXCISION 03/26/2006 - 03/25/2007 LOYDA II on cervical biopsy COMBINED HYSTEROSCOPY DIAGNOSTIC / D&C 03/26/2010 - 03/25/2011 endometrial polyp, irregular bleeding, postcoital bleeding ESOPHAGEAL DILATION 03/26/2013 - 03/25/2014 GERD, esophageal stricture 3 times MYOMECTOMY 03/26/2016 - 03/25/2017 laparoscopic myomectomy ABDOMINAL SURGERY 2016 Medical History Medical History Date Comments Abnormal Pap smear of cervix 2006 LOYDA II on cervical biopsy Frequent headaches tension and m igraine Sinus congestion GERD with stricture 2013 Menstrual problem Crying after anesthesia Cough Family History Medical History Relation Name Comments Breast cancer Cousin Diabetes Father Stone Hypertension Father Stone Cancer Maternal Grandfather Gene Breast cancer Maternal Grandmother Emma Cancer Maternal Grandmother Emma Coronary artery disease Maternal Grandmother Emma Hypertension Maternal Grandmother Emma Breast cancer Mother's Sister BRCA gene ( -) Cancer Paternal Grandfather Anshul Alzheimer's disease Paternal Grandmother Emma Endocrine tumor Sister 1 low-grade gl ioma of brain Cancer Sister 2 Jennie Relation Name Status Comments Cousin Father Stone Maternal Grandfather Gene Maternal Grandmother Emma Mother's Sister Paternal Grandfather Max Paternal Grandmother Emma Sister 1 Sister 2 Jennie Social History Tobacco Use Types Packs/Day Years Used Date Smoking Tobacco: Never Cigarettes Smokeless Tobacco: Never Alcohol Use Standard Drinks/Week Comments Yes 0 (1 standard drink = 0.6 oz pur e alcohol) socially AUDIT-C Answer Date Recorded Q1: How often do you have a drink containing alc ohol? 2-4 times a month 02/13/2024 Q2: How many drinks containi ng alcohol do you have on a typical day when you are drinking? 1 or 2 02/13/2024 Q3: How often do you have si x or more drinks on one occasion? Never 02/13/2024 Personal Safety Answer Date Recorded Have you ever been in or are you currently in a harmful physical or emotional relationship or is someone making you feel afraid or unsafe? 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 Not on file Not on file Obstetrics History Para Term AB IAB SAB Ectopic Multiple Livin g Live Births 0 0 0 0 0 0 0 0 0 0 0 Last Filed Vital Signs Vital Sign Reading Time Taken Comments Blood Pressure 100/60 04/01/2024 3:11 PM PHOTOGRAMMETRIC ENGINEER Pulse 58 02/18/2024 3:04 PM PHOTOGRAMMETRIC ENGINEER Temperature 36.7 C (98.1 F) 02/18/2024 3:04 PM PHOTOGRAMMETRIC ENGINEER Respiratory Rate 14 02/18/2024 3:04 PM PHOTOGRAMMETRIC ENGINEER Oxygen Saturation 98% 02/18/2024 3:04 PM PHOTOGRAMMETRIC ENGINEER Inhaled Oxygen Concentration - - Weight 58.5 kg (129 lb) 04/01/2024 3:11 PM PHOTOGRAMMETRIC ENGINEER Height 160 cm (5' 3) 02/18/2024 6:24 AM PHOTOGRAMMETRIC ENGINEER Body Mass Index 22.85 02/18/2024 6:24 AM PHOTOGRAMMETRIC ENGINEER Plan of Treatment Health Maintenance Due Date Last Done Comments Depression Screening 1980 Hepatitis C Screening 1980 Varicella Vaccines (1 of 2 - 13+ 2-dose series) 1995 Hepatitis B Screening 2000 Pneumococcal vaccine <65 (1 of 2 - PCV) 2001 Breast Cancer Screening-Mammogram 10/17/2024 10/18/2023 Regular Well Visit/Exam 18-64 10/17/2024 10/18/2023, 10/13/2022, 10/12/2021, Additional history exists Influenza Vaccine (#1) 2024 5, 12/30/2013, 02/12/2013 DTaP/Tdap/Td Vaccine (2 - Td or Tdap) 04/21/2028 04/21/2018 Cervical Cancer Screening Discontinued 2022, 10/13/2022, 10/03/2019, Additional history exists HPV Vaccines Aged Out No longer eligi ble based on patient's age to complete this topic Procedures Procedure Name Priority Date/Time Associated Diagnosis Comments SCREENING MAMMOGRAM BILATERAL W VIRGLI Schedule Routine, Read Routine (OP Routine) 10/18/2023 10:38 AM CDT Encounter for screening mammogram for malignant neoplasm of breast PAP WITH REFLEX TO HIGH RISK HPV Routine 10/13/2022 1:53 PM CDT Screening for malignant neoplasm of the cervix from Last 3 Months or Most Recently Relevant to Health Maintenance Results * Screening Mammogram Bilateral W Virgil (10/18/2023 10:38 AM CDT) Anatomical Region Laterality Modality Breast Bilateral Mammography 10/18/2023 10:5 1 AM CDT Impressions 10/18/2023 10:51 AM CDT There is no mammographic evidence of malignancy. A 1 year screening mammogram is recommended. BI-RADS: 1 - Negative. The patient has been or will be contacted. The patient will be entered into a reminder system with a target due date of 1 year for her next mammogram. Electronically signed by: Adelia Braga M.D. Narrative 10/18/2023 10:51 AM CDT EXAMINATION: SCREENING MAMMOGRAM BILATERAL W VIRGIL ORDERING HEALTHCARE PROVIDER: IVIS PUCKETT HISTORY: Routine screening mammography. COMPARISON: 04/18/2022, 12/08/2020 TECHNIQUE: CC and MLO views of the bilateral breasts were obtained with digital technique using breast tomosynthesis with C view. Computer aided detection was utilized. FINDINGS: DENSITY: There are scattered fibroglandular elements in the bilateral breasts. BREASTS: There are no suspicious masses, suspicious calcifications, or other suspicious findings in either breast. There has been no suspicious interval change. us Ivis Puckett DO IMG MAMMO PROCEDURES Fi nal Result * Pap with reflex to High Risk HPV and Genotyping (Cytology Component) (10/13/2022 1:53 PM CDT) Thin prep (Pap test) 10/13/2022 1:53 PM CDT 10/13/2022 1:53 PM CDT Narrative PATHOLOGY CH - 10/19/2022 11:24 AM CDT [facility] Department of Pathology [address] [place] [address] Final Report with Addendum Note to Patients: This report may contain a detailed description of human tissue sent by a health care provider to the laboratory for pathologic evaluation. The content of this report is essential for diagnosis and may provide important critical findings. This information may be unfamiliar to patients to review without a medical professional present. It is advised that the patient review this report in the presence of a health care provider who can answer questions and explain the details. Patient Name: NINA HESS Address: [address] [place] [address] Gender: F : 1980 (Age: 42) Service: Location: Hospital #: [id number] Patient Type: SPECIMEN Taken: 10/13/2022 Received: 10/13/2022 Accessioned:: 10/16/2022 Reported: 10/19/2022 Physician(s): Colette Freeman D.O. Diagnosis: SOURCE OF SPECIMEN Imaged Thinprep Pap Test w/ Reflex HPV - Solar Business Developer Cytologic Material: STATEMENT OF ADEQUACY - Specimen satisfactory for interpretation; endocervical/transformation zone component absent or insufficient GENERAL CATEGORIZATION: - Negative for intraepithelial lesion or malignancy ROBYN Sloan(ASCP) Report Electronically Reviewed and Signed Out By ROBYN Sloan(ASCP) 10/19/2022 11:24:09Addenda: HPV Test Interpretation HPV HR 16- Not detected HPV HR 18-Not detected HPV HR non 16/18-Not detected Interpretive Data Nucleic acid amplification for detection of high-risk Human Papilloma virus (HPV) is performed by the Payal April 6800 HPV test. This assay specifically detects HPV- 16 and HPV-18 genotypes. The following HPV genotypes are detected as high-risk HPV: HPV-31, 33, 35, 39, 45, 51, 52, 56, 58, 59, 66, and 68. This assay has been approved by the [place] Food and Drug Administration for detection of HPV in cervical specimens collected by a physician using an endocervical brush/spatula or cervical broom and placed in the ThinPrep Pap Test PreservCyt collection containers. The performance characteristics of this test have been verified by the [facility] Molecular Infectious Disease laboratory. Correlate with reported cytology results, as applicable. Interpretive data last revised 22 ROBYN Downey(ASCP)Report Electronically Reviewed and Signed Out By ROBYN Downey(ASCP) 10/27/2022 11:01:59 Specimen(s) Received: A: Imaged Thinprep Pap Test w/ Reflex HPV - Solar Business Developer Cytologic Material Clinical History: Last Menstrual Period: 10/02/2022 The Pap test is a screening test used to aid in the detection of cervical cancer and its precursors. It should not be the sole means by which malignant and premalignant lesions are diagnosed. Both false negative and false positive results may occur. It also has poor sensitivity for the detection of endometrial lesions and should not be used to evaluate suspected endometrial abnormalities. For these reasons it is most important to obtain Pap tests at regular intervals. The performance characteristics of some immunohistochemical stains, fluorescence in-situ hybridization tests and immunophenotyping by flow cytometry cited in this report (if any) were determined by the Surgical Pathology Department at [facility] as part of an ongoing chemistry quality control technician program and in compliance with federally mandated regulations drawn from the Clinical Laboratory Improvement Act of 1988 (CLIA '88). Some of these tests rely on the use of analyte specific reagents and are subject to specific labeling requirements by the [place] Food and Drug Administration. Such diagnostic tests may only be performed in a facility that is certified by the Department of Health and Human Services as a high complexity laboratory under CLIA '88. The FDA has determined that such clearance or approval is not necessary. This test is used for clinical purposes. It should not be regarded as investigational or for research. Nevertheless, federal rules concerning the medical use of analyte specific reagents require that the following disclaimer be attached to the report: This test was developed and its performance characteristics determined by the Surgical Pathology Department [facility]. It has not been cleared or approved by the U. S. Food and Drug Administration. Ivis Puckett DO LAB CYTOLOGY ORDERABLES Final Result PATHOLOGY [address] [place] [address] from Last 3 Months or Most Recently Relevant to Health Maintenance Insurance [facility] HMO/PPO Address: [address] [place] [address] [facility] CHOICE PLUS [facility] HMO/PPO Address[address] [address] [place] [address] [facility]ICE PLUS [facility] H[facility]/PPO Address: [place] [address] [facility] CHOICE PLUS [facility] HMO/PPO Address: [address] [place] [address] Advance Directives For more information, please contact: [phone] * Full Code (Latest Code Status on File) Date Activated Date Inactivated Comments 10/07/2019 3:38 AM 10/07/2019 12:40 PM Care Teams Consultant Education Relationship Specialty Start Date End Date Irina Slade PA PCP - General Physician Superintendent Meters 08/28/20 Ivis Puckett DO [address] [place] [address] Consulting Physician Obstetrics and Gynecology 02/18/24
--- OUTSIDE RECORDS SUMMARY | 2024-10-14 08:40 | XMS_ITS | Referral Summary ---
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 Not on file Not on file Not on file Last Filed Vital Signs Vital Sign Reading Time Taken Comments Blood Pressure 100/60 04/01/2024 3:11 PM LOGISTICS INTERN Pulse 58 02/18/2024 3:04 PM LOGISTICS INTERN Temperature 36.7 C (98.1 F) 02/18/2024 3:04 PM LOGISTICS INTERN Respiratory Rate 14 02/18/2024 3:04 PM LOGISTICS INTERN Oxygen Saturation 98% 02/18/2024 3:04 PM LOGISTICS INTERN Inhaled Oxygen Concentration - - Weight 58.5 kg (129 lb) 04/01/2024 3:11 PM LOGISTICS INTERN Height 160 cm (5' 3) 02/18/2024 6:24 AM LOGISTICS INTERN Body Mass Index 22.85 02/18/2024 6:24 AM LOGISTICS INTERN Plan of Treatment Not on file Procedures Procedure Name Priority Date/Time Associated Diagnosis Comments SCREENING MAMMOGRAM BILATERAL W VIRGIL Schedule Routine, Read Routine (OP Routine) 10/18/2023 [...] PATHOLOGY CH - 10/19/2022 11:24 AM CDT [facility] Department of Pathology [address] [place], [place] [id number] Final Report with Addendum Note to Patients: [...] the details. Patient Name: NINA HESS Address: [address] [place] [address] Gender: F : 1980 (Age: 42) Service: Location: Hospital #: [id number] Patient Type: SPECIMEN Taken: 10/13/2022 Received: 10/13/2022 Accessioned:: 10/16/2022 Reported: 10/19/2022 Physician(s): Colette Freeman D.O. Diagnosis: SOURCE OF SPECIMEN Imaged Thinprep Pap Test w/ Reflex HPV - Automobile Brake Bonder Cytologic Material: STATEMENT OF ADEQUACY - Specimen [...] this test have been verified by the [facility] Molecular Infectious Disease laboratory. Correlate with reported cytology results, as applicable. Interpretive data last revised 22 ROBYN Downey(ASCP)Report Electronically Reviewed and Signed Out By ROBYN Downey(ASCP) 10/27/2022 11:01:59 Specimen(s) Received: A: Imaged Thinprep Pap Test w/ Reflex HPV - Automobile Brake Bonder Cytologic Material Clinical History: Last Menstrual Period: [...] determined by the Surgical Pathology Department at [facility] as part of an ongoing quality reviewer program and in compliance with federally mandated [...] characteristics determined by the Surgical Pathology Department [facility]. It has not been cleared or approved by the [place]. S. Food and Drug Administration. Ivis Puckett DO LAB [place]OLOGY [place] [address] [place] [address] from Last 3 Months or Most Recently Relevant to Health Maintenance Insurance [facility] CHOICE PLUS [facility] CHOICE PLUS Advance Directives For more information, please contact: [phone] * Full Code (Latest Code Status on File) Date Activated Date Inactivated Comments 10/07/2019 3:38 AM 10/07/2019 12:40 PM Care Teams Railway Switch Operator Relationship Specialty Start Date End Date Irina Slade PA PCP - General Physician Crew Team Member 08/28/20 Ivis Puckett DO [address] [place] [address] Consulting Physician Obstetrics and Gynecology 02/18/24
== END 2024-10-14 08:36 | disposition home or self-care (01) ==
LOC: ANHBWCIMG 08:36
PROVIDERS: PCP Nurse Practitioner Adult Health; Visit Provider Nurse Practitioner Adult Health
DX: R14.0 Abdominal distension (gaseous) (principal)
CPT/HCPCS: 74018